=== PATIENT | female | born 1995 | race Asian ===

== ENCOUNTER → 2025-05-05 12:19 | Outpatient (CLI) | payer BC, SELFPAY ==
--- NOTE | 2025-05-05 12:22 | DI.RAD.S_ITS ---
PROCEDURE: XR FINGER RT MIN 2V INDICATIONS: Crush injury to right pinky finger TECHNIQUE: AP hand, 2 views of the 5th finger(s) acquired. COMPARISON: None. FINDINGS: Bones: No fractures or dislocations. No suspicious bony lesions. Soft tissues: No suspicious soft tissue calcifications. IMPRESSION: No acute bony abnormality. Approved by: Shaun Mercedes M.D. on 05/05/2025 at 12:26
== END ==
PROVIDERS: Referring Provider Registered Nurse; Visit Provider Registered Nurse
DX: S67.196A Crushing injury of right little finger, initial encounter (principal); T14.8XXA Other injury of unspecified body region, initial encounter; X58.XXXA Exposure to other specified factors, initial encounter
CPT/HCPCS: 73140